=== PATIENT | female | born 1960 | race Native Hawaiian/Other Pacific Islander ===

== ENCOUNTER 2016-04-07 09:34 | Outpatient (CLI) | payer BC ==
[~2016-04-07 09:34] MED LIST: CELEBREX50 MG PO; DIOVAN HC1 PO; LEVOTHYROXIN100 MC1 PO; LEXAPRO10 MG OR
== END 2016-04-07 19:31 | disposition home or self-care (01) ==
LOC: RESP 09:34
DX: Z01.818 Encounter for other preprocedural examination (principal)
CPT/HCPCS: 93005

== ENCOUNTER 2018-07-09 16:15 | Outpatient (CLI) | payer BC | END 2018-07-09 20:05 | disposition home or self-care (01) | LOC: LAB 16:15 | DX: R19.7 Diarrhea, unspecified (principal) | CPT/HCPCS: 82272; 83630; 87015; 87045; 87324; 87328; 87329; 87449; 87899 ==

== ENCOUNTER 2021-11-08 14:45 | Outpatient (CLI) | payer BC | END 2021-11-08 19:31 | disposition home or self-care (01) | LOC: RAD 14:45 | PROVIDERS: ATTEND Internal Medicine | DX: U07.1 COVID-19 (principal) ==

== ENCOUNTER 2022-10-04 12:02 | Outpatient (CLI) | payer BC | END 2022-10-04 19:04 | disposition home or self-care (01) | LOC: RAD 12:02 | PROVIDERS: ATTEND Nurse Practitioner | DX: M54.59 Other low back pain (principal); M54.16 Radiculopathy, lumbar region ==

== ENCOUNTER 2022-11-17 14:03 | Outpatient (CLI) | payer BC | END 2022-11-17 20:00 | disposition home or self-care (01) | LOC: US 14:03 | PROVIDERS: ATTEND Internal Medicine | DX: R22.1 Localized swelling, mass and lump, neck (principal) ==